=== PATIENT | male | born 1950 | race Asian ===

== ENCOUNTER 2019-11-06 14:26 | Emergency (ER) | payer OTHER ==
[~2019-11-06] VITALS: Ht 182.9 cm; Wt 97.5 kg
[2019-11-06 14:36] VITALS: Ht 182.9 cm; Wt 97.5 kg
[2019-11-06 16:37] VITALS: BP 130/76
== END 2019-11-06 16:37 | disposition home or self-care (01) ==
LOC: ED 14:26
DX: S46.912A Strain of unspecified muscle, fascia and tendon at shoulder and upper arm level, left arm, initial encounter (principal); S33.5XXA Sprain of ligaments of lumbar spine, initial encounter; S80.811A Abrasion, right lower leg, initial encounter; Z95.1 Presence of aortocoronary bypass graft; V49.49XA Driver injured in collision with other motor vehicles in traffic accident, initial encounter; W22.10XA Striking against or struck by unspecified automobile airbag, initial encounter; Y93.I9 Activity, other involving external motion; Y92.413 State road as the place of occurrence of the external cause; Y99.8 Other external cause status
CPT/HCPCS: Q0092